=== PATIENT | female | born 1950 | race Caucasian/White ===

== ENCOUNTER 2022-05-17 17:38 | Emergency (ER) | payer MEDICARE, OTHER, SELFPAY ==
[2022-05-17 17:47] VITALS: BP 152/88; PULSE 82; RESP 18; TEMP 37.1; O2SAT 97; BMI 25.6
[2022-05-17 18:16] LABS: Appearance Urine Slightly Cloudy (Clear); Bilirubin Urine Negative (Negative); Blood Urine 3+ (Negative); Color Urine Red (Yellow); Glucose Urine Negative (Negative); Ketones Urine Negative (Negative); Leukocyte Esterase Urine 1+ (Negative); Nitrite Urine Negative (Negative); Protein Urine 2+ (Negative); Urobilinogen Urine 0.2 (0.2-1.0); pH Urine 5.5 (5.0-8.5)
[2022-05-17 18:34] LABS: RBC Urine >100 (0-2)
[2022-05-17 18:35] LABS: Bacteria Urine Few; Squamous Epithelial Cell Urine Few (None-Few)
--- NOTE | 2022-05-17 18:42 | ED.FEMALEGU ---
HPI - Female Genitourinary General Chief complaint: Urogenital Problems, Female Stated complaint: URINARY TRACT INFECTION Time Seen by Provider: 05/17/22 17:43 History of Present Illness HPI Narrative: Patient is a 71-year-old woman comes in today with obvious symptoms of urinary tract infection. She has dysuria and mild hematuria. She has urinary frequency but no abdominal pain or flank pain. She otherwise feels well no fevers no chills no night sweats. She had similar bladder infection approximately 10 years ago. She describes her symptoms as mild to moderate. Related Data Home Medications Medication Instructions Recorded Confirmed amlodipine 10 mg tablet mg 05/17/22 metoprolol succinate 50 mg mg PO 05/17/22 tablet,extended release 24 hr simvastatin 10 mg tablet mg 05/17/22 Allergies Allergy/AdvReac Type Severity Reaction Status Date / Time No Known Drug Allergies Allergy Verified 05/17/22 17:47 Review of Systems Status of ROS: Reports: 10 or more systems reviewed and unremarkable except as noted in History and below Exam Narrative: Exam Narrative: EXAM GENERAL: Patient appears comfortable and well. THYROID: no thyroid nodules or thyromegaly. LYMPH: No supraclavicular or cervical lymphadenopathy. SKIN: Visible skin seen during exam normal or with benign process only. EXT: No dependent lower extremity pedal edema. HEART: Regular rate and rhythm with no murmurs, rubs, or gallops. LUNGS: Clear to auscultation bilaterally with no crackles or wheezes. ABD: Soft, non tender, non distended. PSYCH: Good eye contact, speech is not pressured. Const: Vital Signs, click to edit/add: Vital Signs - 24 hr 05/17/22 17:47 Temperature 98.7 F Pulse Rate [Right Pulse Oximeter] 82 Respiratory Rate 18 Blood Pressure [Ri ght Upper Arm] 152/88 H Pulse Oximetry 97 Course Vital Signs Vital signs: Initial Vital Signs Temperature 98.7 F 05/17/22 17:47 Temperature Source Temporal Artery Scan 05/17/22 17:47 Pulse Rate 82 05/17/22 17:47 Respiratory Rate 18 05/17/22 17:47 Blood Pressure 152/88 H 05/17/22 17:47 Blood Pressure Mean 109 05/17/22 17:47 Blood Pressure Position Sitting 05/17/22 17:47 Pulse Oximetry 97 05/17/22 17:47 Oxygen Delivery Method 05/17/22 17:47 Vital Signs Temperature 98.7 F 05/17/22 17:47 Pulse Rate 82 05/17/22 17:47 Respiratory Rate 18 05/17/22 17:47 Blood Pressure 152/88 H 05/17/22 17:47 Pulse Oximetry 97 05/17/22 17:47 Temperature 98.7 F 05/17/22 17:47 Pulse Rate 82 05/17/22 17:47 Respiratory Rate 18 05/17/22 17:47 Blood Pressure 152/88 H 05/17/22 17:47 Pulse Oximetry 97 05/17/22 17:47 MDM - Female Genitourinary MDM Narrative Medical decision making narrative: Patient has symptoms of simply urinary tract infection. I will send her urine for culture. I do not believe she needs further evaluation as she has no fever or abdominal pain. Lab Data Labs: Lab Results 05/17/22 Range/Units 18:01 Urine Color Red A (Yellow) Urine Appearance Slightly Cloudy A (Clear) Urine pH 5.5 (5.0-8.5) Ur Specific [place] 1.010 (1.000-1.030) Urine Protein 2+ A (Negative) Urine Glucose (UA) Negative (Negative) Urine Ketones Negative (Negative) Urine Blood 3+ A (Negative) Urine Nitrite Negative (Negative) Urine Bilirubin Negative (Negative) Urine Urobilinogen 0.2 (0.2-1.0) Ur Leukocyte Esterase 1+ A (Negative) Urine RBC >100 A (0-2) Urine WBC 10-25 A (0-5) Ur Squamous Epith Cells Few (None-Few) Urine Bacteria Few A (None) Discharge Plan Discharge Clinical Impression: Urinary tract infection Patient Disposition: Home, Self-Care Condition: Stable Instructions: Urinary Tract Infection in Women (ED) Additional Instructions: Cipro as per Instymeds Activity Level: No Restrictions Discharge Diet: Regular Prescriptions: No Action metoprolol succinate 50 mg tablet extended release 24 hr PO 0RF Label Comments: TAKE 1 TABLET BY MOUTH EVERY DAY simvastatin 10 mg tablet 0RF Label Comments: TAKE 1 TABLET BY MOUTH EVERYDAY AT BEDTIME amlodipine 10 mg tablet 0RF Label Comments: TAKE 1 TABLET BY MOUTH EVERY DAY Follow Up/Referrals: Debora Liriano MD [Primary Care Provider] - Stand Alone Forms: [employer] Info Instructions
== END 2022-05-17 19:15 | disposition home or self-care (01) ==
LOC: ED 19:00
PROVIDERS: Emergency Provider Internal Medicine; PCP Internal Medicine
DX: N39.0 Urinary tract infection, site not specified (principal)
CPT/HCPCS: 81003; 81015; 87086; 87186; 99283; 99284

== ENCOUNTER 2022-07-11 23:00 | Emergency (ER) | payer MEDICARE, OTHER, SELFPAY ==
[2022-07-11 23:21] VITALS: BP 135/90; PULSE 106; RESP 18; TEMP 36.1; O2SAT 94
[2022-07-12 00:13] LABS: SARS PCR* POSITIVE SARS-CoV-2 (Negative)
--- NOTE | 2022-07-12 00:22 | ED_ITS ---
HPI - General Adult General Chief complaint: Cough Stated complaint: covid +,sore throat, cough Time Seen by Provider: 07/11/22 23:01 History of Present Illness HPI narrative: Pt is a 72 year old woman who began feeling sick with runny nose and congestion 2 days ago. She is vaccinated for COVID 19 but did test positive for COVID 19 yesterday. She just returned from a trip and comes in looking for further recommendations. She has had no cough, fever, shortness of breath or weakness. No other significant complaints. She has no previous history of COVID 19. Related Data Home Medications Medication Instructions Recorded Confirmed amlodipine 10 mg tablet mg 05/17/22 metoprolol succinate 50 mg mg PO 05/17/22 tablet,extended release 24 hr simvastatin 10 mg tablet mg 05/17/22 Previous Rx's Medication Instructions Recorded nirmatrelvir 300 mg (150 mg 1 ea PO PER PKG DIR #30 ea 07/12/22 x2)-ritonavir 100 mg tablet,dose pack(EUA) (Paxlovid) Allergies Allergy/AdvReac Type Severity Reaction Status Date / Time No Known Drug Allergies Allergy Verified 05/17/22 17:47 Review of Systems Status of ROS: Reports: 10 or more systems reviewed and unremarkable except as noted in History and below [facility] Medical History (Updated 07/12/22 @ 00:45 by Ashwin Barbosa MD) Hyperlipidemia Hypertension Social History Smoking Status: Never smoker Do you use any of these nicotine containing products: None Second hand tobacco smoke exposure: No How often do you have a drink containing alcohol: monthly or less How often do you have six or more drinks on one occasion: Never AUDIT-C Alcohol total score: 1 Non-prescribed substance use: denies use service: No Exam Narrative: Exam Narrative: EXAM GENERAL: Patient appears comfortable and well. EYES: No scleral icterus. ENT: Tympanic membranes and oropharynx normal. THYROID: no thyroid nodules or thyromegaly. LYMPH: No supraclavicular or cervical lymphadenopathy. SKIN: Visible skin seen during exam normal or with benign process only. EXT: No dependent lower extremity pedal edema. HEART: Regular rate and rhythm with no murmurs, rubs, or gallops. LUNGS: Clear to auscultation bilaterally with no crackles or wheezes. ABD: Soft, non tender, non distended. PSYCH: Good eye contact, speech is not pressured. Const: Vital Signs, click to edit/add: Vital Signs - 24 hr 07/11/22 23:21 Temperature 97.0 F L Pulse Rate [Right Pulse Oximeter] 106 H Respiratory Rate 18 Blood Pressure [Le ft Upper Arm] 135/90 H Pulse Oximetry 94 Oxygen Delivery Me thod Room Air Course Course Hospital Course: COVID 19 testing positive Vital Signs Vital signs: Initial Vital Signs Temperature 97.0 F L 07/11/22 23:21 Temperature Source Temporal Artery Scan 07/11/22 23:21 Pulse Rate 106 H 07/11/22 23:21 Respiratory Rate 18 07/11/22 23:21 Blood Pressure 135/90 H 07/11/22 23:21 Blood Pressure Mean 105 07/11/22 23:21 Blood Pressure Position Sitting 07/11/22 23:21 Pulse Oximetry 94 07/11/22 23:21 Oxygen Delivery Method 07/11/22 23:21 Vital Signs Temperature 97.0 F L 07/11/22 23:21 Pulse Rate 106 H 07/11/22 23:21 Respiratory Rate 18 07/11/22 23:21 Blood Pressure 135/90 H 07/11/22 23:21 Pulse Oximetry 94 07/11/22 23:21 Oxygen Delivery Method 07/11/22 23:21 Temperature 97.0 F L 07/11/22 23:21 Pulse Rate 106 H 07/11/22 23:21 Respiratory Rate 18 07/11/22 23:21 Blood Pressure 135/90 H 07/11/22 23:21 Pulse Oximetry 94 07/11/22 23:21 Oxygen Delivery Method 07/11/22 23:21 Medical Decision Making MDM Narrative Medical decision making narrative: Pt testing positive for COVID 19. Will need Paxlovid. Reviewed case with pharmacy. Amlodipine and Metoprolol effects may be exagerated. Simvastatin should be held. Quarantine for 5 days with masking for 5 days after. Differential Diagnosis Differential Diagnosis: COVID, Pneumonia, URI, Sinusitis Lab Data Labs: Lab Results 07/11/22 Range/Units 23:14 SARS-CoV-2 (PCR) POSITIVE SARS-CoV-2 A (Negative) Discharge Plan Discharge Clinical Impression: COVID-19 Condition: Stable Instructions: COVID-19 (Coronavirus Disease 2019) (ED) Additional Instructions: Take blood pressure daily as antihypertensives may be affected by Paxlovid Hold Simvastatin during treatment and for 5 days after Paxlovid as directed Quarantine for 5 day with masking in public for additional 5 days Discharge Diet: Regular Prescriptions: New Paxlovid (EUA) 300 mg (150 mg x 2)-100 mg tablets,dose pack 1 ea PO PER PKG DIR Qty: 30 0RF Rx Instructions: 1 ea orally; No Action metoprolol succinate 50 mg tablet extended release 24 hr PO Label Comments: TAKE 1 TABLET BY MOUTH EVERY DAY simvastatin 10 mg tablet Label Comments: TAKE 1 TABLET BY MOUTH EVERYDAY AT BEDTIME amlodipine 10 mg tablet Label Comments: TAKE 1 TABLET BY MOUTH EVERY DAY Follow Up/Referrals: Debora Liriano MD [Primary Care Provider] - Stand Alone Forms: [email or web address] Info Instructions
== END 2022-07-12 01:10 | disposition home or self-care (01) ==
PROVIDERS: Emergency Provider Internal Medicine; PCP Internal Medicine
DX: U07.1 COVID-19 (principal)
CPT/HCPCS: 87635; 99283; 99284

== ENCOUNTER 2022-09-08 14:19 | Outpatient (CLI) | payer MEDICARE, OTHER, SELFPAY ==
--- NOTE | 2022-09-08 14:40 | CRLHL7_ITS ---
For Patients: As a result of the Century Cures Act, medical imaging exams and procedure reports are released immediately into your electronic medical record. You may view this report before your referring provider. If you have questions, please contact your health care provider. BILATERAL SCREENING MAMMOGRAM WITH COMPUTER-AIDED DETECTION AND TOMOSYNTHESIS TECHNIQUE: CC and MLO views were obtained. These mammographic images have been obtained using full-field digital technique. These mammographic images were interpreted with the benefit of computer-aided detection. Breast Tomosynthesis was used in this interpretation. COMPARISON FILM: 09/02/21, 08/31/20,08/21/19. FINDINGS: The breasts are heterogeneously dense, which may obscure small masses IMPRESSION: There is no radiographic evidence for malignancy. ASSESSMENT: BI-RADS Category 1: Negative RECOMMENDATION: Routine screening mammogram in 1 year. A lay language report of this examination will be provided to the patient. Zain Machado M.D. Diagnostic Radiologist [email or web address] MEDINA/monica anderson/Dictated by: Zain Machado MD @ 09/09/2022 9:00:00 AM (Electronically Signed)
== END 2022-09-08 14:20 | disposition home or self-care (01) ==
LOC: MAMMO 14:20
PROVIDERS: PCP Internal Medicine; Visit Provider Internal Medicine
DX: Z12.31 Encounter for screening mammogram for malignant neoplasm of breast (principal); R92.2 Inconclusive mammogram
CPT/HCPCS: 77063; 77067; 80061; 82306; 82947

== ENCOUNTER 2023-02-18 22:48 | Emergency (ER) | payer MEDICARE, OTHER, SELFPAY ==
[2023-02-18 22:58] VITALS: BP 152/88; PULSE 98; RESP 18; TEMP 36.7; O2SAT 98; BMI 24.8
[2023-02-19 00:21] VITALS: BP 152/88; PULSE 98; RESP 18; TEMP 36.7
--- NOTE | 2023-02-20 11:12 | ED.GENADULT ---
HPI - General Adult General Chief complaint: Hypertension Stated complaint: high blood pressure, 163/103 Time Seen by Provider: 02/18/23 23:00 History of Present Illness HPI narrative: 72-year-old woman presenting to the emergency department with concern of high blood pressure that might lead to a stroke. Further mother at age 71 of a heart attack. Underlying history of hypertension and becomes apparent in more conversation, with not an insignificant degree of anxiety. Was seen yesterday by Ophthalmology/Optometry and noted to have what sounds like maybe a spot or point retinal hemorrhage that was told to her could be caused by hypertension. Having been recommended to do home blood pressure checks in the past Ms. Capellan was checking today and noted a blood pressure of 163/103 at one point. She is not experiencing headache or shortness of breath. No visual changes. No extremity edema. No numbness or tingling. No sense of palpitations. She describes a number of time so how even the process of checking her own blood pressure causes a good deal of anxiety for her; the but does/home of the machine pumping up in particular. Has been on metoprolol for some time though initiated for unclear reasons. And then she seems to indicate that the provider at that time shrugged (my paraphrase) and suggested she just continue it. It seems perhaps that maybe there was some presumed palpitations and/or anxiety so beta-jack might be helpful is my understanding from line of questioning here. Related Data Home Medications Medication Instructions Recorded Confirmed Lactobacillus acidophilus 10 mg PO QDAY 09/13/22 02/20/23 [id number] tablet 1 tab PO DAILY 09/13/22 02/20/23 cholecalciferol (vitamin D3) 25 1,000 unit PO DAILY 09/13/22 02/20/23 mcg (1,000 unit) tablet coenzyme Q10 100 mg capsule mg PO DAILY 09/13/22 02/20/23 multivitamin (Multiple Vitamins 1 tab PO QAM 09/13/22 02/20/23 tablet) omega 9-ypa-gcm-fish oil 300 1 cap PO QDAY 09/13/22 02/20/23 mg-1,000 mg capsule,delayed release (Fish Oil) Collagen 2 tbspn PO DAILY 02/20/23 Previous Rx's Medication Instructions Recorded amlodipine 10 mg tablet 10 mg PO QDAY #90 tabs 09/13/22 metoprolol succinate 50 mg 50 mg PO QDAY #90 tabs 09/13/22 tablet,extended release 24 hr simvastatin 10 mg tablet 10 mg PO QHS #90 tabs 09/13/22 Allergies Allergy/AdvReac Type Severity Reaction Status Date / Time No Known Drug Allergies Allergy Verified 02/20/23 15:37 Review of Systems Status of ROS: Reports: 6 or more systems reviewed and unremarkable except as noted in History and below [facility] Medical History (Updated 02/20/23 @ 16:02 by Debora Liriano MD) 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) ?S14.3XXA - Injury of brachial plexus, initial encounter (ICD-10) Surgical History (Updated 09/13/22 @ 07:46 by Debora Liriano MD) History of bilateral cataract extraction ?Z98.41 - Cataract extraction status, right eye (ICD-10) ?Z98.42 - Cataract extraction status, left eye (ICD-10) History of blepharoplasty (02/22/17) ?Z98.890 - Other specified postprocedural states (ICD-10) History of section (05/17/10) ?Z98.891 - History of uterine scar from previous surgery (ICD-10) History of tonsillectomy ?Z90.89 - Acquired absence of other organs (ICD-10) Social History Smoking Status: Never smoker Do you use any of these nicotine containing products: None Second hand tobacco smoke exposure: No How often do you have a drink containing alcohol: monthly or less How often do you have six or more drinks on one occasion: Never AUDIT-C Alcohol total score: 1 Non-prescribed substance use: denies use Little interest or pleasure in doing things: not at all Feeling down, depressed, or hopeless: not at all service: No Exam Narrative: Exam Narrative: Pleasant. NAD though mildly anxious. She is easily conversant. Moving all extremities without difficulty. She is well-perfused peripherally without lower extremity edema. Head is atraumatic. Neck is supple. Lungs are clear. Heart an elevated rate but in regular rhythm. No MRG appreciated. Const: Documenting provider has reviewed patient's vital signs: yes Course Vital Signs Vital signs: Initial Vital Signs Temperature 98.1 F 02/18/23 22:58 Temperature Source Temporal Artery Scan 02/18/23 22:58 Pulse Rate 98 02/18/23 22:58 Respiratory Rate 18 02/18/23 22:58 Blood Pressure 152/88 H 02/18/23 22:58 Blood Pressure Mean 109 02/18/23 22:58 Blood Pressure Position Sitting 02/18/23 22:58 Pulse Oximetry 98 02/18/23 22:58 Oxygen Delivery Method Room Air 02/18/23 22:58 Vital Signs Temperature 98.1 F 02/18/23 22:58 Pulse Rate 98 02/18/23 22:58 Respiratory Rate 18 02/18/23 22:58 Blood Pressure 152/88 H 02/18/23 22:58 Pulse Oximetry 98 02/18/23 22:58 Oxygen Delivery Method Room Air 02/18/23 22:58 Temperature 98.1 F 02/19/23 00:21 Pulse Rate 98 02/19/23 00:21 Respiratory Rate 18 02/19/23 00:21 Blood Pressure 152/88 H 02/19/23 00:21 Pulse Oximetry 98 02/18/23 22:58 Oxygen Delivery Method Room Air 02/18/23 22:58 Medical Decision Making MDM Narrative Medical decision making narrative: It seems that anxiety is the major precipitant here for high blood pressures. Does not appear to have symptoms consistent with hypertensive emergency or urgency really. I do not think more extensive workup is necessary. Appears to be tolerating amlodipine quite well. At some point began to dose her medications in the evening only for unclear reason. Given that I think that stress/anxiety is contributing to her elevated pressures, perhaps morning dosing of medications would be more effective. Or maybe splitting her dosings. Might also re-evaluate blood pressure medications themselves. Perhaps a substitution with p.r.n. beta jack like propranolol would be helpful for anxiety symptoms. Blood pressures improved during time in the emergency department. Offered reassurance at this point and discussed etiology of CVA and RI as these were some of her concerns. Spent longer time in conversation. Ms. Capellan appears to be practicing rather healthy active lifestyle. I discussed that she has an excellent primary care provider would encourage her to follow-up in the next week or 2 with some intermittent readings. Given the hum of the blood pressure cuff machine is particularly upsetting, perhaps manual checks either with EMS/fire department or in the clinic after periods of rest would be more tolerable. See patient discharge plan. Medical Records Medical records reviewed: Yes I reviewed the patient's medical records Discharge Plan Discharge Clinical Impression: Anxiety, High blood pressure Patient Disposition: Home w/ Parent or Adult Condition: Stable Additional Instructions: Keep up your level of activity. Consider dosing medications in the morning or splitting the dosing as discussed. I would try to limit your blood pressure checks a little. Maybe to a few times a week and then since you are saying that the hum of the machine bothers you, maybe being seen for checks done manually would be helpful whether that is in the clinic or sometimes at the fire station or EMS. Call to follow-up in in person or virtually with Dr. Liriano to discuss your blood pressure management and appropriate medications. Prescriptions: No Action coenzyme Q10 100 mg capsule PO DAILY Lactobacillus acidophilus Capsule 10 mg PO QDAY omega 7-fle-mvh-fish oil [Fish Oil] 300-1,000 mg capsule,delayed release(DR/EC) 1 cap PO QDAY cholecalciferol (vitamin D3) 25 mcg (1,000 unit) tablet 1,000 unit PO DAILY multivitamin [Multiple Vitamins] Tablet 1 tab PO QAM [id number] Tablet 1 tab PO DAILY amlodipine 10 mg tablet 10 mg PO QDAY Qty: 90 3RF simvastatin 10 mg tablet 10 mg PO QHS Qty: 90 3RF metoprolol succinate 50 mg tablet extended release 24 hr 50 mg PO QDAY Qty: 90 3RF Collagen 2 tbspn PO DAILY Follow Up/Referrals: Debora Liriano MD [Primary Care Provider] - Stand Alone Forms: [employer] Instructions
== END 2023-02-19 | disposition home or self-care (01) ==
PROVIDERS: Emergency Provider Family Medicine; PCP Internal Medicine
DX: I10 Essential (primary) hypertension (principal); F41.9 Anxiety disorder, unspecified
CPT/HCPCS: 99283; 99284

== ENCOUNTER 2023-09-07 06:23 | Outpatient (CLI) | payer MEDICARE, OTHER, SELFPAY ==
--- NOTE | 2023-09-07 08:06 | W.ANESCHARGE ---
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
--- NOTE | 2023-09-07 11:14 | W.ANESCHARGE ---
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
== END 2023-09-07 06:24 | disposition home or self-care (01) ==
LOC: OP CLINIC 06:24
PROVIDERS: PCP Internal Medicine; Visit Provider Surgery
DX: Z12.11 Encounter for screening for malignant neoplasm of colon (principal); K63.5 Polyp of colon; K64.4 Residual hemorrhoidal skin tags; K57.30 Diverticulosis of large intestine without perforation or abscess without bleeding
CPT/HCPCS: 00811; 45385; 88305; 99100; J2704

== ENCOUNTER 2023-09-11 11:07 | Outpatient (CLI) | payer MEDICARE, OTHER, SELFPAY ==
--- NOTE | 2023-09-11 11:30 | CRLHL7_ITS ---
For Patients: As a result of the Century Cures Act, medical imaging exams and procedure reports are released immediately into your electronic medical record. You may view this report before your referring provider. If you have questions, please contact your health care provider. BILATERAL SCREENING MAMMOGRAM WITH COMPUTER-AIDED DETECTION AND TOMOSYNTHESIS TECHNIQUE: CC and MLO views were obtained. These mammographic images have been obtained using full-field digital technique. These mammographic images were interpreted with the benefit of computer-aided detection. Breast Tomosynthesis was used in this interpretation. COMPARISON FILM: 09/08/22, 09/02/21, 08/31/20. FINDINGS: The breasts are heterogeneously dense, which may obscure small masses IMPRESSION: There is no radiographic evidence for malignancy. ASSESSMENT: BI-RADS Category 2: Benign RECOMMENDATION: Routine screening mammogram in 1 year. A lay language report of this examination will be provided to the patient. Zain Machado M.D. Diagnostic Radiologist [email or web address] LISBETH/Dictated by: Zain Machado MD @ 09/12/2023 12:52:00 PM (Electronically Signed)
== END 2023-09-11 11:08 | disposition home or self-care (01) ==
LOC: MAMMO 11:09
PROVIDERS: PCP Internal Medicine; Visit Provider Internal Medicine
DX: Z12.31 Encounter for screening mammogram for malignant neoplasm of breast (principal); R92.2 Inconclusive mammogram
CPT/HCPCS: 77063; 77067; 80061; 82306

== ENCOUNTER 2023-12-26 07:30 | Outpatient (RCR) | payer MEDICARE, OTHER, SELFPAY ==
--- NOTE | 2023-09-15 09:45 | OT.OPOE ---
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 Date of Onset Chronic Medical Conditions HTN Other Conditions PMH (copied from MD chart): Adenomatous colon polyp (Acute ) Adenoma polyp x2 removed by colonoscopy in 09/04 D12.6 - Benign neoplasm of colon, unspecified (ICD-10) Essential hypertension (Acute) on medication I10 - Essential (primary) hypertension (ICD-10) Pruritus ani (Acute) L29.0 - Pruritus ani (ICD-10) Osteopenia (Acute 05/20/10) by DEXA 05/22, 05/25, outside , DEXA here 08/31 slightly worsened at the femurs bilaterally, alendronate recommended but refused by patient 2019 and 2019, due again 3-5Y M85.80 - Other specified disorders of bone density and structure, unspecified site ( ICD-10) Gastroesophageal reflux disease (Acute) Globus sensation. Silent reflux per Dr. Mix 05/27 ENT note, followed by her chiropractor in past K21.9 - Gastro-esophageal reflux disease without esophagitis (ICD-10) Chronic neck pain (Acute) Due to degenerative changes. 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) S14.3XXA - Injury of brachial plexus, initial encounter (ICD -10) Surgical History (Updated 12/04 @ 07:46 by Debora Liriano MD) History of tonsillectomy Z90.89 - Acquired absence of other organs (ICD-10) History of section ( 05/17/10) Z98.891 - History of uterine scar from previous surgery ( ICD-10) History of blepharoplasty (10/29) Z98.890 - Other specified postprocedural states (ICD-10) History of bilateral cataract extraction Z98.41 - Cataract extraction status, right eye (ICD-10) Z98.42 - Cataract extraction status, left eye (ICD-10) Medications (copied from MD chart): amlodipine 10 mg PO QDAY tifjqji-orgpuddza-szaa 1 tab PO DAILY cholecalciferol (vitamin D3) 1 ,000 units PO DAILY coenzyme Q10 mg PO DAILY [Collagen 2 tbspn PO DAILY PRN ] Lactobacillus acidophilus 10 mg PO QDAY PRN metoprolol succinate ER 50 mg PO QDAY omega 2-ryc-lcq-fish oil 300-1 ,000 mg (Fish Oil) 1 cap PO QDAY simvastatin 10 mg PO QHS Medical/Functional History Medical History Reviewed Yes Prior Level of Function/Mobility Pt has had full use of her LUE with chronic pain due to arthritic MF. 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 Painful with bending, feels sore and tight, somewhat better after she cut out dairy from her diet. 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 Pt rates her average pain in hands at 5/10 , states it often feels achi and like she has a tight band on her fingers. Pt states she is also feeling really weak. Noticing that her right wrist has gotten stiff, can't do planks anymore. Pt states her goals are to improve her ROM and strength in her hands and wrists in order to improve functional use of her hands / UE. Pain Assessment Pain Present Pain Present Pain Reported Range of Motion and Strength Shoulder Range of Motion and Strength Shoulder Range of Motion and Strength 09/15/23 Pt demonstrates full AROM and strength of BUE shoulders Elbow/Forearm Range of Motion and Strength Elbow/Forearm Range of Motion and 09/15/23 Pt demonstrate full Strength AROM and strength of BUE elbows and forearms. Wrist Range of Motion and Strength Wrist Range of Motion and Strength 09/15/23 AROM of the RUE wrist flexion is 85, LUE is 85. AROM of the RUE wrist ext is 40, LUE is 65. AROM of the RUE wrist UD is 30, LUE is 35. AROM of BUE wrists RD is 15. Gross muscle strength in BUE wrists is 4-/5. Hand/Finger/Thumb Range of Motion and Strength Hand/Finger/Thumb Range of Motion and 09/15/23 Pt demonstrates AROM Strength WFL in BUE fingers and thumbs with the exception of the LUE IF and MF. AROM of the LUE MF MP is 0-80, IF MP is 0-70. AROM of the LUE MF PIP joint is -15-70, IF Is 0-80. AROM of the LUE MF DIP is -30-40, IF is 0-45. Hand Pinch/[employer] Strength Hand Right [employer] Strength Position 1 (lbs) 38 Lateral Pinch Strength (lbs) 10 Three Point Pinch (lbs) 9 Left [employer] Strength Position 1 (lbs) 40 Lateral Pinch Strength (lbs) 14 Three Point Pinch (lbs) 11 OT Objective Data Hand Hand Dominance Left Observations/Posture/Limb Appearance Objective Observations 09/15/23 Pt has multiple arthritic deformities throughout both of her hands, of special note is large nodule on the LUE IF PIP joint (radial side) and a significant drift of the LUE MF DIP joint. Sensation Sensation Assessment Summary Comments 09/15/23 Pt denies any paresthesia. OT Problems Problems Problems Decreased Strength,Decreased Range of Motion,Pain,Lifting, Gripping,Pinching Other Problems Opening Containers Patient Potential Good Assessment Assessment Assessment Pt presents to OT with significant arthritic changes in multiple joints of both of her hands with the inability to complete a full fist on the LUE secondary to limitations in AROM of the IF and MF. Pt also experiencing limitation in AROM of her wrists. Pt also demonstrates significant weakness in her BUE. Pt has average pain level of 5/10 in BUE, worse with activity. Pt is a very active person and is concerned about these deficits as it makes it difficult for her to do the things she really enjoys such as Yoga, painting, and golfing . Pt will benefit from skilled OT intervention to improve ROM and strength in BUE hands and wrists, reduce pain, and restore pain-free use of UE with higher level ADLs, IADLs and leisure activities. Occupational Therapy Treatment Plan - OP Potential Rehabilitation Potential Good Set Goals Goals Set with Patient Yes Goals Goals 1. Pt will be independent and compliant with HEP in order to resume full, pain-free use of the involved UE. 3 weeks 2. Pt will demonstrate full, pain-free AROM of the involved UE in order to improve ability to grasp and hold. 6 weeks 3. Pt will demonstrate general understanding and follow through with joint protection techniques in order to reduce risk for further arthritic related joint deformities in her hands. 7 weeks. 4. 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 8 weeks. Target Date 12/16/22 Treatment Plan Treatment Plan Evaluation,Edema Control, Iontophoresis,Joint Mobilization,Manual Therapy, Splinting,Ultrasound, Therapeutic Exercise, Therapeutic Activities,Self Care/Home Management,Education Expected Frequency 1-2x Week Expected Duration 6-8 Weeks Home Program Home Program Home Program Initiated Home Program Specifics Provided training and practice in HEP for tendon glides, AROM / blocked ROM of LUE hand / fingers. Following demo, pt is able to complete exs with minimal cues. Pt was provided with written instructions for use at home as well. Certification Certification I Certify That: Therapy Services Provided, Therapy Plan Established, Therapy Plan Reviewed Recertification Information Recertification Information Initial Certification Date 09/15/23 Recertification Due Date 12/14/23 Reasons to Continue Skilled Therapy Initiated OT today to address pain, weakness and limited AROM in the LUE hand/MF due to OA. Rehabilitation Potential Good Continued Plan of Care and Interventions Please see above Provider Signature Shows Agreement With POC & Medical Necessity Physician Comment/Change Comment or Changes Physician NPI Number #
== END 2023-12-26 11:56 | disposition home or self-care (01) ==
PROVIDERS: PCP Internal Medicine; Visit Provider Internal Medicine
DX: M19.042 Primary osteoarthritis, left hand (principal); R29.898 Other symptoms and signs involving the musculoskeletal system; Z51.89 Encounter for other specified aftercare
CPT/HCPCS: 77080; 97035; 97140; 97165; 97535

== ENCOUNTER 2024-09-12 08:36 | Outpatient (CLI) | payer MEDICARE, OTHER, SELFPAY ==
--- NOTE | 2024-09-12 09:15 | CRLHL7_ITS ---
For Patients: As a result of the Century Cures Act, medical imaging exams and procedure reports are released immediately into your electronic medical record. You may view this report before your referring provider. If you have questions, please contact your health care provider. BILATERAL SCREENING MAMMOGRAM WITH COMPUTER-AIDED DETECTION AND TOMOSYNTHESIS TECHNIQUE: CC and MLO views were obtained. These mammographic images have been obtained using full-field digital technique. These mammographic images were interpreted with the benefit of computer-aided detection. Breast Tomosynthesis was used in this interpretation. COMPARISON FILM: 09/11/23, 09/08/22, 09/02/21. FINDINGS: The breasts are heterogeneously dense, which may obscure small masses. IMPRESSION: There is no radiographic evidence for malignancy. ASSESSMENT: BI-RADS Category 2: Benign RECOMMENDATION: Routine screening mammogram in 1 year. A lay language report of this examination will be provided to the patient. Zain Machado M.D. Diagnostic Radiologist [email or web address] SP/Dictated by: Zain Machado MD @ 09/12/2024 10:50:00 AM (Electronically Signed)
== END 2024-09-12 08:37 | disposition home or self-care (01) ==
LOC: MAMMO 08:36
PROVIDERS: PCP Internal Medicine; Visit Provider Internal Medicine
DX: Z12.31 Encounter for screening mammogram for malignant neoplasm of breast (principal); R92.333 Mammographic heterogeneous density, bilateral breasts; E78.5 Hyperlipidemia, unspecified; M85.80 Other specified disorders of bone density and structure, unspecified site; I10 Essential (primary) hypertension
CPT/HCPCS: 77063; 77067; 80061; 82306